=== PATIENT | male | born 1945 | race Caucasian/White ===

== ENCOUNTER → 2020-04-30 09:36 | Outpatient (BNVA) | payer MEDICARE, OTHER, SELFPAY | PROVIDERS: Family Provider Family Medicine; PCP Family Medicine; Visit Provider Nurse Practitioner Family | DX: Z20.822 Contact with and (suspected) exposure to COVID-19 (principal) | CPT/HCPCS: 87635 ==

== ENCOUNTER → 2020-12-04 09:29 | Outpatient (BNVA) | payer MEDICARE, OTHER, SELFPAY | PROVIDERS: Family Provider Family Medicine; PCP Family Medicine; Visit Provider Family Medicine | DX: Z20.822 Contact with and (suspected) exposure to COVID-19 (principal) | CPT/HCPCS: 87635 ==

== ENCOUNTER → 2021-04-23 09:03 | Outpatient (BNVA) | payer MEDICARE, OTHER, SELFPAY | PROVIDERS: Family Provider Family Medicine; PCP Family Medicine; Visit Provider Family Medicine | DX: Z20.822 Contact with and (suspected) exposure to COVID-19 (principal); Z11.52 Encounter for screening for COVID-19 | CPT/HCPCS: 87635 ==

== ENCOUNTER → 2021-10-29 13:23 | Outpatient (BNVA) | payer MEDICARE, OTHER, SELFPAY | PROVIDERS: Family Provider Family Medicine; PCP Family Medicine; Visit Provider Family Medicine | DX: R30.0 Dysuria (principal); R39.11 Hesitancy of micturition | CPT/HCPCS: 80053; 81003; 84153 ==

== ENCOUNTER → 2024-06-23 09:06 | Outpatient (BNVA) | payer MEDICARE, OTHER, SELFPAY | PROVIDERS: PCP Family Medicine; Visit Provider Family Medicine | DX: M25.559 Pain in unspecified hip (principal) | CPT/HCPCS: 73502 ==

== ENCOUNTER 2024-06-30 05:00 | Outpatient (RCR) | payer MEDICARE, OTHER, SELFPAY | END 2024-07-30 23:59 | disposition home or self-care (01) | LOC: GPT 05:00 | PROVIDERS: PCP Family Medicine; Visit Provider Family Medicine | DX: M16.11 Unilateral primary osteoarthritis, right hip (principal) | CPT/HCPCS: 97110; 97112; 97140; 97161; 97530 ==

== ENCOUNTER 2024-07-31 05:00 | Outpatient (RCR) | payer MEDICARE, OTHER, SELFPAY | END 2024-08-29 23:59 | disposition home or self-care (01) | LOC: GPT 05:00 | PROVIDERS: PCP Family Medicine; Visit Provider Family Medicine | DX: M16.11 Unilateral primary osteoarthritis, right hip (principal) | CPT/HCPCS: 97110; 97112; 97140; 97530 ==

== ENCOUNTER 2024-08-30 05:00 | Outpatient (RCR) | payer MEDICARE, OTHER, SELFPAY | END 2024-09-29 23:59 | disposition home or self-care (01) | LOC: GPT 05:00 | PROVIDERS: PCP Family Medicine; Visit Provider Family Medicine | DX: M16.11 Unilateral primary osteoarthritis, right hip (principal) | CPT/HCPCS: 97110; 97140; 97164 ==

== ENCOUNTER 2024-09-30 06:30 | Outpatient (RCR) | payer MEDICARE, OTHER, SELFPAY | END 2024-10-06 11:26 | disposition home or self-care (01) | LOC: GPT 06:30 | PROVIDERS: PCP Family Medicine; Visit Provider Family Medicine | DX: M16.11 Unilateral primary osteoarthritis, right hip (principal) | CPT/HCPCS: 97110; 97140 ==